=== PATIENT | male | born 1940 | race Caucasian/White ===

== ENCOUNTER 2017-08-03 15:30 | Outpatient (RCR) ==
--- NOTE | 2017-07-31 15:29 | RS.OPPTEV2 ---
Date of Note: 07/30/17 Visit #: 1 Date of Evaluation: 07/30/17 Payer Source: Insurance (Medicare secondary) Treatment Diagnosis: neck pain, UE radicular symptoms. History of Condition/Mechanism of Injury:: Patient reports having neck pain and radiating symptoms start ~ 4 weeks ago. Reports no known injury. States he has not had symptoms like this before. Prior Level of Function.....Patient was independent with: ADL's, Self Care, Work /Vocation, Caregiving, Ambulation/Mobility, Community Integration/Access Current Subjective/complaints:: Mr. Moreno reports neck pain and UE symptoms, especially on the right side. States he has constant tingling into the right UE all the way to the fingers. States symptoms into the left UE are not often. Reports right sided neck pain. He denies headaches. States he has noticed limited neck ROM with driving. States he lives three hours away, in [place] and works at [employer]. States he works during the week and drives home every weekend. Reports increased neck pain with driving. States he has noticed less strength in the right UE. He is right hand dominant and states he has to use the left UE to help the right UE hold tools above shoulder height. States his sleep is limited due to neck pain and symptoms. He wakes up with due to tingling in the right UE. *Precautions: *PACEMAKER* Medical History Medical History: Hypertension, Diabetes, Arthritis Surgical History: Cholecystectomy Surgical History [facility], splenectomy. Smoking Status: Never smoker Hx Home Medications: [place], Lipitor, Coreg, Lasix, Mobic, Medrol niesha Patient's Goals: His goal is to get relief of neck pain and radiating symptoms, so to avoid surgery. Pain Assessment - Pain Description Pain Location: right neck and UE. Pain Description: Aching Current Pain Intensity: 8/10 Functional Outcome Measure Neck Disability Index: 22 - G Codes & Severity Modifier G Codes & Modifier: body position current CJ. body position goal CH Source of G Code score: Neck disability index Observation - Observation Posture: Forward Head, Rounded Shoulders, Increased Thoracic Kyphosis, Decreased Lumbar Lordosis Handedness: Right - ROM Comments: Cervical flexion is WFL's, extension is 50% of normal, bilateral rotation is 50-75% of normal motion. Patient reports tightness felt with end range cervical rotation bilaterally. Bilateral UE AROM is WFL's. - Strength Comments: Bilateral shoulder 5/5, right triceps 4+/5, right wrist extensors 4+/ 5. All else 5/5. Senior Oracle Database Developer Strength Left Hand Senior Oracle Database Developer Strength: 64 lbs. Right Hand Senior Oracle Database Developer Strength: 40 lbs. Dynamometer Testing Position: 2nd Position Palpation Comments:: Patient reports tenderness with palpation over C7. Reports tenderness as well throughout upper traps, specifically tender along the superior border of the right scapula. Patient demonstrate moderate muscle guarding at the right upper traps and bilateral cervical paraspinals. Sensation - Sensation Comments: Reports he can feel light touch throughout the UE's, but reports tingling throughout the right UE, especially along the radial distribution of the forearm and hand. - Traction Treatment Method: Mechanical, Intermittent, Cervical Patient Position: Supine Amount of Force Applied: 18-19 lbs. Hold Time: 30 sec Rest Time: 5 sec Duration of treatment: 10 mins Interventions - Exercise/Activities/Manual Therapy Exercises/Activities: None given today Manual Therapy: DTM X 10 mins with focus on right upper traps and cervical paraspinals following traction. Plan was to perform US, but need to check his type and age of Pacemaker before being able to perform treatment with Ultrasound. Right upper traps muscle tone responds very well to manual therapy. Following treatment, demonstrates minimal to no muscle guarding in right upper traps. Cervical paraspinals decreased to minimal. - Charges Total Direct Minutes: 40 mins Total Treatment Time: 50 mins Procedures billed for this date of service:: EVAL medium, mechanical traction Assessment Assessment: Patient presents to therapy with a diagnosis of cervical radiculopathy. He reports mainly right sided neck pain and right UE tingling. States his radiating symptoms into the right UE are constant. He demonstrates increased muscle tone in the right upper traps and cervical spine, limiting his cervical rotation. He presents to be a good candidate for cervical traction to reduce his radiating symptoms. He will also benefit from education to improve his postural awareness and strengthening for postural stability. Patient Education: Education of diagnosis, Body/Joint mechanics, Activity Modification, Education of Plan of Care Rehab Potential: Good Short Term Goals Goal #1: Right UE symptoms no longer constant. Goal to be met by: 08/07/17 Goal #2: Muscle tone at right upper traps decreased to minimal. Goal to be met by: 08/14/17 Goal #3: Cervical rotation WFL's with minimal reports of discomfort. Goal to be met by: 08/14/17 Goal #4: Pt to demonstrate good postural awareness. Goal to be met by: 08/14/17 Longterm Goals Goal #1: Pt independent in HEP. Goal to be met by: 09/19/17 Goal #2: Score on Neck Disability index improved to 0% impaired. Goal to be met by: 09/19/17 Goal #3: Pt will tolerate commute to and from work with minimal neck pain. Goal to be met by: 09/19/17 Goal #4: RUE strength improved to perform all work activities without difficulty. Goal to be met by: 09/19/17 Plan - Treatment to be Provided Procedures: Therapeutic Exercises, Therapeutic Activity, Manual Therapy, Patient Education Modalities: Ultrasound/Phonophoresis, Hot Packs, Mechanical Traction (Cervical) Other:: Ultrasound at least 6 inches from PACEMAKER. - Treatment Plan Frequency: 3 X week Duration: 6 weeks ORDER # VISITS AND/OR THROUGH DATE: 09/19/17 - Treatment Code (1) Cervical radiculopathy Code(s): M54.12 - RADICULOPATHY, CERVICAL REGION Comments: M54.12 (2) Muscle right arm weakness Code(s): M62.81 - MUSCLE WEAKNESS (GENERALIZED) Comments: M62.81
--- NOTE | 2017-08-02 16:33 | RS.OPPTDN ---
Subjective Date of Note: 08/02/17 Visit #: 2 Date of Evaluation: 07/30/17 Payer Source: Insurance (Medicare secondary) Treatment Diagnosis: neck pain, UE radicular symptoms. Current Subjective/complaints:: Patient asks about starting US. Following discussion with PT and instruction of precautions, patient wants to proceed with treatment and initials precatuion sheet. Following traction patient reports increase in radicular symptoms, but reports a decrease in pain following US and EX. *Precautions: *PACEMAKER* Pain Assessment - Pain Description Pain Location: right neck and UE. Pain Description: Aching Current Pain Intensity: mod - Treatment Modality: Ultrasound Parameters/Method Applied: [id number] at 1.5w/cm2 to the right cervical paraspinals and traps following traction. Patient sitting. Patient Position: Sitting - Heat/Cryotherapy Treatment: Hot Pack ([id number] to c-spine prior to traction. Patient in sitting. ) - Traction Treatment Method: Mechanical, Intermittent, Cervical Patient Position: Supine Amount of Force Applied: 20# reduced to 18# Hold Time: 30sec Rest Time: 5sec Duration of treatment: 15mins Traction Treatment Comment: Began at 20# but reduced back to 18# as headrest woule not stay in place at occipit. Interventions - Exercise/Activities/Manual Therapy Exercises/Activities: Isometric cervical retraction with manual resistance. Instructed to perform at wall or headrest in car. Patient given copy of exercise. Total minutes of Exercise: 3mins Manual Therapy: x3mins trigger point release at the right mid traps and base of cervical paraspinals. Total minutes of Manual Therapy: 3mins HOME EXERCISE PROGRAM: Cervical retraction. - Charges Total Direct Minutes: 16mins Total Treatment Time: 51mins Procedures billed for this date of service:: HP, Traction mechanical, US Assessment: Patient responded well to US following traction with report of reduction in pain. He will benefit from progressive postural correction exericse. Patient Education: Education of diagnosis, Body/Joint mechanics, Home Exercise Program Patient demonstrates compliance with HEP?: Yes Short Term Goals Goal #1: Right UE symptoms no longer constant. Goal to be met by: 08/07/17 Goal #2: Muscle tone at right upper traps decreased to minimal. Goal to be met by: 08/14/17 Goal #3: Cervical rotation WFL's with minimal reports of discomfort. Goal to be met by: 08/14/17 Goal #4: Pt to demonstrate good postural awareness. Goal to be met by: 08/14/17 Progress towards Goal:: Progressing [facility]iary Goals Goal #1: Pt independent in HEP. Goal to be met by: 09/19/17 Progress towards goal: Progressing Goal #2: Score on Neck Disability index improved to 0% impaired. Goal to be met by: 09/19/17 Goal #3: Pt will tolerate commute to and from work with minimal neck pain. Goal to be met by: 09/19/17 Goal #4: RUE strength improved to perform all work activities without difficulty. Goal to be met by: 09/19/17 Plan PLAN OF CARE EXPIRES ON:: 09/19/17 ORDER # VISITS AND/OR THROUGH DATE: 09/19/17 PLAN: Continue Plan of Care (Continue modalities and progress postural exercise to reduce pain and increase functional activity level.)
--- NOTE | 2017-08-03 16:19 | RS.OPPTDN ---
Subjective Date of Note: 08/03/17 Visit #: 3 Date of Evaluation: 07/30/17 Payer Source: Insurance (Medicare secondary) Treatment Diagnosis: neck pain, UE radicular symptoms. Current Subjective/complaints:: Patient reports increased soreness at the base of the right cervical paraspinals. Patient reports right UE radicular symptoms have localized to the mid upper arm. States he is working on HEP. *Precautions: *PACEMAKER* Pain Assessment - Pain Description Pain Location: right neck and UE. Pain Description: Aching Current Pain Intensity: mod - Treatment Modality: Ultrasound Parameters/Method Applied: Ended treatment 14mins with US at 1.5w/cm2 to the base of the right cervical paraspinals, upper traps and upper mid scapular region. Patient Position: Sitting - Heat/Cryotherapy Treatment: Hot Pack ([id number] to the c-spine prior to TX and US. Patient in sitting. ) - Traction Treatment Method: Mechanical, Intermittent, Cervical Patient Position: Supine Amount of Force Applied: 19-20# Hold Time: 30sec Rest Time: 5sec Duration of treatment: 15mins Interventions - Exercise/Activities/Manual Therapy Exercises/Activities: Discussed isometric cervical retraction and scapular retraction. No new exercises added. Manual Therapy: NA HOME EXERCISE PROGRAM: Cervical retraction - Charges Total Direct Minutes: 14mins Total Treatment Time: 49mins Procedures billed for this date of service:: HP, TX mechanical, US Assessment: Patient reporting change in radicular symptoms. Will need to progress postural correction exercise next week. Patient Education: Body/Joint mechanics, Home Exercise Program Patient demonstrates compliance with HEP?: Yes Short Term Goals Goal #1: Right UE symptoms no longer constant. Goal to be met by: 08/07/17 Goal #2: Muscle tone at right upper traps decreased to minimal. Goal to be met by: 08/14/17 Goal #3: Cervical rotation WFL's with minimal reports of discomfort. Goal to be met by: 08/14/17 Progress towards Goal:: Progressing Goal #4: Pt to demonstrate good postural awareness. Goal to be met by: 08/14/17 Progress towards Goal:: Progressing Assisted Goals Goal #1: Pt independent in HEP. Goal to be met by: 09/19/17 Progress towards goal: Progressing Goal #2: Score on Neck Disability index improved to 0% impaired. Goal to be met by: 09/19/17 Goal #3: Pt will tolerate commute to and from work with minimal neck pain. Goal to be met by: 09/19/17 Goal #4: RUE strength improved to perform all work activities without difficulty. Goal to be met by: 09/19/17 Plan PLAN OF CARE EXPIRES ON:: 09/19/17 ORDER # VISITS AND/OR THROUGH DATE: 09/19/17 PLAN: Continue Plan of Care (Continue modalities, traction, and progress exercise to decrease pain and radicular symptoms and increase functional activity level.)
== END 2017-08-04 ==
PROVIDERS: ATTEND Nurse Practitioner
DX: M50.30 Other cervical disc degeneration, unspecified cervical region (principal); M54.12 Radiculopathy, cervical region